=== PATIENT | female | born 2000 | race Caucasian/White ===

== ENCOUNTER 2021-01-24 11:07 | Inpatient (IN) | payer OTHER ==
[~2021-01-24] VITALS: Ht 160 cm; Wt 3.2 kg
[2021-01-24] MEDS ORDERED: PRENATAL CAPLE1 EAC1 PO (12:07)
[2021-01-24] MEDS ORDERED: FOLIC ACID20 MG PO (12:07)
== END 2021-01-27 13:10 | disposition home or self-care (01) | DRG 788 ==
LOC: OBS/DEL 11:07 → LDR 16:33 → OB/GYN 16:33
PROVIDERS: ADMIT Obstetrics & Gynecology; ATTEND Obstetrics & Gynecology
PROC: 10907ZC Drainage of Amniotic Fluid, Therapeutic from Products of Conception, Via Natural or Artificial Opening (ICD-10-PCS; 2021-01-24)
PROC: 4A1HXFZ Monitoring of Products of Conception, Cardiac Rhythm, External Approach (ICD-10-PCS; 2021-01-24)
PROC: 10D00Z1 Extraction of Products of Conception, Low, Open Approach (ICD-10-PCS; principal; 2021-01-24 20:00)
DX: O62.1 Secondary uterine inertia (principal); Z37.0 Single live birth; Z3A.38 38 weeks gestation of pregnancy